=== PATIENT | female | born 1960 | race Caucasian/White ===

== ENCOUNTER 2017-11-09 09:38 | Inpatient (IN) | payer OTHER ==
[~2017-11-09] VITALS: Ht 152.4 cm; Wt 92.3 kg
[2017-11-09] VITALS (17 sets, daily range): BP systolic 100–129; BP diastolic 61–84
--- NOTE | ~2017-11-09 | EKG ---
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 : 1960 Requested By: Dominguez Sibley Order Number: [id number] MD: Leonardo Montaño Measurements Intervals [place] Rate: 90 P: -66 PA: 190 QRS: 13 QRSD: 82 T: -37 QT: 350 QTc: 429 Interpretive Statements Sinus or ectopic atrial rhythm Low voltage, precordial leads Probable anteroseptal infarct, old Nonspecific T abnormalities, inferior leads Electronically Signed On 11-11-2017 17:03:49 CDT by Leonardo Montaño [email or web address] <ELECTRONICALLY SIGNED> By: Leonardo Montaño MD 11/11/17 1703 1545 1545 Leonardo Montaño MD /EPI
--- NOTE | ~2017-11-09 | H ---
[facility] [place] [address] HISTORY AND PHYSICAL Name: SALVADOR CAGE Room #: 200-I [facility] IN .R.#: [id number] Admission: 11/09/17 Attend Phys: Dominguez Sibley MD, Discharge: 11/11/17 Date of : 60 Report #: [id number] THIS REPORT FOR: //name// CC: FAM unknown Dominguez Mackey DATE OF SERVICE: 11/09/2017 HISTORY OF PRESENT ILLNESS: The patient is a 56-year-old female who was life-flighted up here from [facility] Emergency Room. She has no prior cardiac history. She was awoken this morning at 6:30, felt okay and then had some subsequent jaw pain which was fairly intense and then felt like someone standing on her chest, associated with some mild shortness of breath. She subsequently was in the [facility] Emergency Room with a weird current of injury. She was given heparin, nitro, morphine, and life-flighted here to [facility]. She takes no medications. She has not had any cardiac history. All those are strong family history of premature disease and she is a pack and half a day smoker. PAST MEDICAL HISTORY: Positive for some borderline hypertension, eye surgery, foot surgery, hysterectomy, some COPD, and continued tobacco use. ALLERGIES: No known drug allergies. SOCIAL HISTORY: She is a pack and half a day smoker, some social alcohol. 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 She lives with some surrogate family friends or brothers. She is not . She does have 3 biological children and she is . REVIEW OF SYSTEMS: Negative except for some progressive dyspnea, shortness of breath and did now in retrospect have a couple of episodes of chest pain in the last week or two. FAMILY HISTORY: A sister and brother both had premature disease, sister recently had a stent or an infarct, she states who is about her age. LABORATORY DATA: Unremarkable from [place]. Creatinine was 0.9. H and H were stable. Hemoglobin was 15.6, hematocrit 46.9. Troponin was 0.117 there. PHYSICAL EXAMINATION: GENERAL: She is in moderate amount of distress. She has high anxiety level. VITAL SIGNS: Blood pressure 140/90, pulse is 80s and 90s. HEENT: There is actually some xanthelasma noted on the eye. Pharynx is clear. NECK: Shows preserved upstrokes without JVD or bruits. LUNGS: Clear with prolonged expiratory phase, slightly diminished in the bases. [facility] [address] [place] [address] HISTORY AND PHYSICAL Name: SALVADOR CAGE Room #: 200I [facility].#: [id number] Admission: 11/09/17 Attend Phys: Dominguez Sibley MD, Discharge: 11/11/17 Date of : 60 Report #: [id number] CARDIOVASCULAR: Regular rate and rhythm, S1, S2 distant. ABDOMEN: Obese, nontender. Well-healed midline scar. EXTREMITIES: Reveal trace edema, nonpitting. Distal pulses are intact. NEUROLOGIC: Nonfocal. SKIN: Warm and dry without xanthoma or without ulcer. There was a xanthelasma noted on the eye. ASSESSMENT: 1. Acute inferior wall myocardial infarction. 2. Obesity. 3. Borderline hypertension by history. 4. Suspected hypercholesterolemia. RECOMMENDATIONS AND PLAN: We will emergently proceed to the catheterization lab to delineate the anatomy. Risks, benefits and alternatives were discussed with her. We emergently proceed to the catheterization lab directly from the helicopter. <ELECTRONICALLY SIGNED> By: Dominguez Sibley MD, FACC 11/19/17 1302 1156 1250 Dominguez Sibley MD, FACC /nt
--- NOTE | ~2017-11-09 | EKG ---
[place] [address] 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 KRAUSE : 1960 Requested By: Tari Wakefield Order Number: [id number] MD: Leonardo Montaño Measurements Intervals [place] Rate: 86 P: -71 MS: 193 QRS: 26 QRSD: 82 T: -39 QT: 364 QTc: 436 Interpretive Statements Sinus or ectopic atrial rhythm Consider anterior infarct Nonspecific T abnormalities, inferior leads Compared to ECG 11/10/2017 04:04:03 Myocardial infarct finding now present Ventricular premature complex(es) no longer present T-wave abnormality still present Electronically Signed On 11-11-2017 17:11:51 CDT by Leonardo Montaño [email or web address] <ELECTRONICALLY SIGNED> By: Leonardo Montaño MD 11/11/17 1711 30 30 Leonardo Montaño MD /EPI
--- NOTE | ~2017-11-09 | 2DMMODE ---
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 Left ventricular systolic function is low normal.inf base hypo LVEF is 50-55% Right Ventricle The right ventricle is normal size. Atria Left atrium appears dilated. The right atrium size is normal. Pericardium Trace to small pericardial fluid noted posteriorly. <Conclusion> The left ventricle is normal size. Left ventricular systolic function is low normal.inf base hypo LVEF is 50-55% The right ventricle is normal size. Left atrium appears dilated. The right atrium size is normal. Trace to small pericardial fluid noted posteriorly. <ELECTRONICALLY SIGNED> By: Dominguez Sibley MD, FACC 11/09/17 1213 1213 121 Dominguez Sibley MD, [facility] /INF
--- NOTE | ~2017-11-09 | D ---
[facility] [place] [address] DISCHARGE SUMMARY Name: SALVADOR CAGE Room #: 200-I [facility] IN ..#: [id number] Admission: 11/09/17 Attend Phys: Dominguez Sibley MD, Discharge: 11/11/17 Date of : 60 Report #: [id number] THIS REPORT FOR: //name// CC: FAM unknown Dominguez DIGGS DATE OF SERVICE: 11/11/2017 HOSPITAL COURSE: The patient is a 56-year-old male who was flown here from [facility] Emergency Room having an acute inferior wall myocardial infarction. Approximately 4 hours into the event. Some difficulty, was eventually able to wire a totaled right coronary artery lesion and successfully stent this with a 2.5 x 26 Resolute drug-eluting stent, postdilated to 2.75 mm. There is mild circumflex disease and a 70-75% mid LAD lesion, which may be a target for later intervention. The inferior base was hypokinetic with EF was near normal 45-50% range and expect that to improve. She has been up and ambulating, blood pressure has been well controlled here. Her lipids have been elevated, and then statin, beta doug, ELLIE inhibitors have been initiated, ARB actually losartan. She is up and ambulating. There is no recurrent chest pain or pressure. She feels well. Her EKG is sinus rhythm with T-wave inversions in the inferior leads and Q-waves with evolution of inferior infarct. DISCHARGE MEDICATIONS: Will be losartan 25, metoprolol succinate 25. Full aspirin for a month and then down to a baby aspirin with Plavix 75. Protonix 40 p.r.n. No lifting for 48 hours or lying in tub, Jacuzzi or rizvi for a week. No MRI or dental work for 3 months. Dual antiplatelet therapy to be continued for at least 6-12 months. She has a small aortic aneurysm on the abdominal aortogram. I will obtain an echo Doppler, aortoiliac ultrasound and see her in 6 weeks. We will need some sort of stress testing in the future to evaluate for ischemia in the LAD, but certainly would not intervene urgently here. Would need to have symptoms and/or ischemic response. The lesion is least moderately significant in nature. DISCHARGE DIAGNOSES: 1. Acute inferior wall myocardial infarction. 2. Hypercholesterolemia. 3. Borderline hypertension. 4. Tobacco use. 5. Small abdominal aortic aneurysm. LABORATORY DATA: H and H are 13 and 41. The troponin peaked at 30. Hemoglobin A1c was pending, but her glucose has been mildly elevated. This will have to be followed up as an outpatient. Lipids, LDL was 98, total 172, HDL 36, triglycerides 193,. Hemoglobin A1c is pending. I will forward that on to [facility] [address] [place] [address] DISCHARGE SUMMARY Name: SALVADOR CAGE Room #: 200-I [facility] IN M.R.#: [id number] Admission: 11/09/17 Attend Phys: Dominguez Sibley MD, Discharge: 11/11/17 Date of : 60 Report #: [id number] primary. She will call with any issues. Otherwise, followup is scheduled in 6 weeks. Echo Doppler, abdominal ultrasound. <ELECTRONICALLY SIGNED> By: Dominguez Sibley MD, FACC 11/19/17 1302 1011 1039 Dominguez Sibley MD, FACC /nt
--- NOTE | ~2017-11-09 | EKG ---
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: jlmendez : 1960 Requested By: Dominguez Sibley Order Number: [id number] MD: Jeff Montgomery Measurements Intervals [place] Rate: 73 P: -33 NC: 163 QRS: 7 QRSD: 82 T: -26 QT: 416 QTc: 459 Interpretive Statements Sinus rhythm Inferior infarct, age indeterminate Anteroseptal infarct, old Lead(s) II were not used for morphology analysis No previous ECG available for comparison Electronically Signed On 11-10-2017 12:58:47 CDT by Jeff Montgomery [email or web address] <ELECTRONICALLY SIGNED> By: Jeff Montgomery MD, [facility] 11/10/17 1258 1356 1356 Jeff Montgomery MD, [facility] /EPI
--- NOTE | ~2017-11-09 | CATHLAB ---
[facility] [address] [place] [address] INVASIVE PROCEDURE REPORT Name: SALVADOR CAGE Room #: 236-P [facility] IN .#: [id number] Admission: 11/09/17 Attend Phys: Dominguez Sibley, Discharge: Date of : 60 Date of Service: 11/10/17 Formerly named [facility] Report #: [id number] THIS REPORT FOR: //name// APPROVED REPORT Study performed: 11/09/2017 10:03:26 Patient Details Patient Status: In-Patient Room #: The patient is a 56 year-old female Event Personnel Dominguez Sibley Rn Women Services, Antonella Caputo Monitor, Milton Mae RT(R)(CV) Matildeub, France Mckeon RN engraver seals Performed Art Access - R femoral artery* Aleksander Access - R femoral vein 84567 Initial Mod Sed Same Phys/QHP Gr5y 375862 69443 Mod Sed Same Phys/QHP Ea 178913 Right and Left Heart Cath w/or w/o Coronarie 1778888 [facility] w/wo Plasty Single RCA 025972 Aortogram Abdominal Peripheral Angio 709891 Hemostasis with Manual pressure Indication STEMI Procedure Narrative The patient was brought emergently to the Cardiac Catheterization Laboratory and was prepped and draped in a sterile manner. The Right Groin^ was infiltrated with 1% Lidocaine subcutaneous anesthesia. A PINNACLE 6FR Sheath #[id number] sheath was inserted into the RFA^. Coronary angiography was performed using coronary diagnostic catheters. The right coronary system was accessed and visualized with a LAUNCHER 6FR JR 4 #[id number] catheter. The left coronary system was accessed and visualized with a JL 4 catheter. The left ventricle was accessed and visualized with a Pigtail catheter. Left ventriculogram was performed in QUILES projection. An aortogram of the abdominal aorta was performed. Hemostasis was obtained with manual pressure following sheath removal without any complications. The patient tolerated the procedure well and there were no complications associated with the procedure. There was no hematoma. Both sheaths were sutured into place. Intraoperative Conscious Sedation Sedation start time: 10:49 Case end Time: [address] [address] INVASIVE PROCEDURE REPORT Name: SALVADOR CAGE Room #: 236-P [facility]#: [id number] Admission: 11/09/17 Attend Phys: Dominguez Sibley, Discharge: Date of : 60 Date of Service: 11/10/17 1200 Report #: [id number] 11:48 Fentanyl 50 mcg Versed 1 mg Fluoro Time: 27.36 minutes Dose: DAP 37121.30 cGycm2 3754 mGy Contrast Type and Amount: Visipaque 240 ml Hemodynamics The right atrial mean pressure is 21 mmHg. The right ventricular pressure is 45/22 mmHg. The pulmonary artery pressure is 48/29 mmHg with a mean of 38 mmHg. The mean pulmonary capillary wedge pressure is 24 mmHg. The aortic pressure is 123/69 mmHg with a mean of 91 mmHg. The left ventricular pressure is 141/9 mmHg with a mean of mmHg. The left ventricular end diastolic pressure is 26 mmHg. PCI Technique Lesion Anticoagulation was achieved with Heparin. Percutaneous coronary intervention was performed on the proximal right coronary artery. The lesion stenosis prior to intervention was 100% with AILEEN 0 flow. A LAUNCHER 6FR JR 4 #[id number] Guide Catheter was used to engage the ostium. A Luge Wire .014 x 182CM #[id number] Interventional Guidewire was used to cross the lesion. BALLOON DILATION A Balloon catheter Sprinter OTW 2.5 x 12 #[id number] was inserted and inflated up to 12.00atm for 39seconds. Additional Inflation: 14.00atm for 33seconds. STENT DEPLOYMENT A drug-eluting stent Sprinter OTW 2.5 x 12 #[id number] was inserted and inflated up to 16.00atm for 26seconds. Conclusion #1 successful emergent PTCA stent of acute infarct vessel dominant right coronary artery totally occluded. Placement of a 2.5 x 26 resolute drug-eluting stent postdilated 2.75 mm yielding 0% residual AILEEN grade 3 flow. There is moderate disease in the proximal ostial right and more distal right this is a dominant vessel. #2 the left main is free of disease giving rise to LAD and circumflex #3 LAD extends around the apex. There is moderate proximal disease and calcification 40-50% then a proximal mid lesion of 70-75% ( will follow) well preserved around the apex #4 circumflex OM nondominant moderate size 4050% proximal lesion with a moderately extensive distribution. Mild distal disease [facility] [address] [address] INVASIVE PROCEDURE REPORT Name: SALVADOR CAGE Room #: 236-P ADM IN M.R.#: [id number] Admission: 11/09/17 Attend Phys: Dominguez Sibley, Discharge: Date of : 60 Date of Service: 11/10/17 1200 Report #: [id number] #5 left ventricle normal in size inferior base is hypokinetic EF is 55% range. #6 abdominal aorta is intact there is a small distal infrarenal aortic aneurysm we will evaluate with ultrasound. Iliac system renal arteries widely patent #7 [place]-Mi catheter placed for monitoring purposes. Due to possibility of perforation and tamponade. No evidence of this on echo obtained and lab will transfer to ICU hemodynamically stable guarded condition good result noted on the infarct vessel. Recommendations plan patient is stable post infarct here. There was a question of a myocardial staining but no obvious perforation. This was initially noted on a difficult wire. Final result is quite good. Abbreviated echo and lab reveals a trivial pericardial effusion not hemodynamically significant. <ELECTRONICALLY SIGNED> By: Dominguez Sibley MD, FACC 11/10/171199 1200 99 Dominguez Sibley MD, FACC /INF
--- NOTE | ~2017-11-09 | EKG ---
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 : 1960 Requested By: Dominguez Sibley Order Number: [id number] MD: Jeff Montgomery Measurements Intervals [place] Rate: 92 P: -59 AK: 194 QRS: 8 QRSD: 73 T: -29 QT: 342 QTc: 424 Interpretive Statements Sinus or ectopic atrial rhythm Ventricular premature complex Nonspecific T abnormalities, inferior leads No previous ECG available for comparison Electronically Signed On 11-10-2017 13:06:14 CDT by Jeff Montgomery [email or web address] <ELECTRONICALLY SIGNED> By: Jeff Montgomery MD, [facility] 11/10/17 1306 0404 0404 Jeff Montgomery MD, [facility] /EPI
[~2017-11-09 09:38] MED LIST: DOXYCYCLINE 10100 M1 PO; IBUPROFEN 800800 MG PO; MEDROLDOSEPACK PO; NOHOMEMEDICATIONS; PERCOCET 5-3251 EACH; PROAIR HFA8.5 GM IH; ULTRACET TABLE1 EACH PO; VANCOMYCIN HCL 11 G2
[2017-11-09 16:31] LABS: HEMATOCRIT 42.3 % (37.0-47.0); HEMOGLOBIN 14.2 gm/dL (12.0-15.0); MCH 29.6 pg (26.0-34.0); MCHC 33.6 g/dL (28.0-37.0); MCV 88.1 fL (80.0-100.0); RBC 4.8 mil/uL (4.20-5.00); RDW 14.3 % (10.5-14.5); WBC 10.3 thou/uL (4.0-11.0)
[2017-11-09 16:52] LABS: CALCIUM 8.5 mg/dL (8.5-10.1); CREATININE 0.7 mg/dL (0.6-1.0); POTASSIUM 4.4 mmol/L (3.5-5.1)
[2017-11-09 16:57] LABS: TROPONIN-I 31.02 ng/mL (<0.06)
[2017-11-10] VITALS (51 sets, daily range): BP systolic 77–156; BP diastolic 57–96
[2017-11-10 04:35] LABS: HEMATOCRIT 41.1 % (37.0-47.0); HEMOGLOBIN 13.4 gm/dL (12.0-15.0); MCHC 32.6 g/dL (28.0-37.0); MCV 89.1 fL (80.0-100.0); RBC 4.62 mil/uL (4.20-5.00); RDW 14.4 % (10.5-14.5); WBC 9.9 thou/uL (4.0-11.0)
[2017-11-10 04:43] LABS: ALBUMIN 2.9 g/dL (3.4-5.0); ANION GAP 8 mmol/L (7-16); BUN 13 mg/dL (7-18); CALCIUM 8.4 mg/dL (8.5-10.1); CHLORIDE 103 mmol/L (98-107); CHOLESTEROL 172 mg/dL (<200); CO2 27 mmol/L (21-32); CREATININE 0.8 mg/dL (0.6-1.0); GLUCOSE 170 mg/dL (74-106); HDL CHOLESTEROL 36 mg/dL (>40); LDL CHOLESTEROL 98 mg/dL (<100); SGOT 108 U/L (15-37); SGPT 45 U/L (30-65); SODIUM 138 mmol/L (136-145); TC:HDL 4.8 Ratio (Not establshd); TOTAL BILIRUBIN 0.5 mg/dL (<0.1-1.0); TRIGLYCERIDE 193 mg/dL (<150); VLDL 39 mg/dL (<40)
[2017-11-10 04:47] LABS: SERUM ASSESSMENT Clear
[2017-11-11] VITALS (8 sets, daily range): BP systolic 133–154; BP diastolic 65–92
[2017-11-11 09:05] LABS: CALCIUM 8.9 mg/dL (8.5-10.1); CREATININE 0.7 mg/dL (0.6-1.0); POTASSIUM 3.9 mmol/L (3.5-5.1)
[2017-11-11] MEDS ORDERED: ASPIR-TRIN325 MG PO (10:06)
[2017-11-11] MEDS ORDERED: PLAVIX 75 MG TA75 M1 PO (10:06)
[2017-11-11] MEDS ORDERED: ATORVASTATIN CA40 MG PO (10:07)
[2017-11-11] MEDS ORDERED: COZAAR 25 MG TA25 M1 PO (10:07)
[2017-11-11] MEDS ORDERED: TOPROL XL25 MG PO (10:07)
[2017-11-12 00:09] LABS: GLYCOHEMOGLOBIN (HGB A1C) 7.1 % (4.8-5.6)
== END 2017-11-11 13:35 | disposition home or self-care (01) | DRG 246 ==
LOC: CATH 09:38 → EDSTATUS 13:09 → 2N 13:10 → ICU 13:10 → 2N 11-11 06:25
PROVIDERS: Internal Medicine Cardiovascular Disease; Nurse Practitioner Gerontology
PROC: B410YZZ Fluoroscopy of Abdominal Aorta using Other Contrast (ICD-10-PCS; principal; 2017-11-10)
PROC: B211YZZ Fluoroscopy of Multiple Coronary Arteries using Other Contrast (ICD-10-PCS; principal; 2017-11-10)
PROC: 027034Z Dilation of Coronary Artery, One Artery with Drug-eluting Intraluminal Device, Percutaneous Approach (ICD-10-PCS; principal; 2017-11-10)
PROC: 4A023N8 Measurement of Cardiac Sampling and Pressure, Bilateral, Percutaneous Approach (ICD-10-PCS; principal; 2017-11-10)
PROC: B215YZZ Fluoroscopy of Left Heart using Other Contrast (ICD-10-PCS; principal; 2017-11-10)
DX: I21.3 ST elevation (STEMI) myocardial infarction of unspecified site (principal); I50.33 Acute on chronic diastolic (congestive) heart failure; F17.210 Nicotine dependence, cigarettes, uncomplicated; E66.9 Obesity, unspecified; E78.00 Pure hypercholesterolemia, unspecified; J44.9 Chronic obstructive pulmonary disease, unspecified; I71.4 Abdominal aortic aneurysm, without rupture; Z93.3 Colostomy status; Z79.82 Long term (current) use of aspirin; Z79.899 Other long term (current) drug therapy; Z90.710 Acquired absence of both cervix and uterus; Z82.3 Family history of stroke; Z68.39 Body mass index [BMI] 39.0-39.9, adult; I11.0 Hypertensive heart disease with heart failure
CPT/HCPCS: 10078